=== PATIENT | male | born 1985 | race Caucasian/White ===

== ENCOUNTER 2021-06-06 13:47 | Emergency (ER) | payer OTHER, SELFPAY ==
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
--- NOTE | 2021-06-06 13:50 | ED.LOWEXIN ---
HPI - Extremity Injury (Lower) General Chief Complaint: Extremity Injury, Lower Stated Complaint: Rt Ankle Pain Time Seen by Provider: 06/06/21 13:51 Source: patient Mode of arrival: ambulatory Limitations: no limitations History of Present Illness HPI Narrative: Mr. Hanson is a 35-year-old male patient presenting to the clinic today with complaints of right ankle pain. He reports Related Data Home Medications Medication Instructions Recorded Confirmed roberto cider carynegar 500 mg tablet 500 mg PO DAILY tablet 01/21/20 06/06/21 sjbuvttj-ovzcjcee-siqfs acid 400 1 tablet PO DAILY tablet 01/21/20 06/06/21 mcg-vit K 20 mcg-lycop 300 mcg tablet turmeric root extract 500 mg 500 mg PO DAILY 01/21/20 06/06/21 capsule Allergies Allergy/AdvReac Type Severity Reaction Status Date / Time Sulfa (Sulfonamide Allergy Unknown Unknown Verified 06/06/21 14:15 Antibiotics) Review of Systems Review of Systems: Pertinent positives per HPI. Patient denies any fever, chills, rash, headache, visual changes, dizziness, cough, runny nose, sore throat, shortness of breath, chest pain, palpitations, nausea, vomiting, diarrhea, constipation, abdominal pain, or any urinary issues. PMFSH Surgical History Surgical History History of appendectomy History of elbow surgery right Family History Family History Father Hypertension Grandparent A-fib Grandparent Cancer of unknown origin Social History Social History Smoking status: Former smoker Smoking end date: 02/28/16 Alcohol intake: current Comments At the time of my signature, I reviewed and agree with the nursing past medical, surgical, social, and family history. There is no relevant family history pertinent to the patient complaint. Exam Narrative: General: Well-developed, well nourished, in no apparent distress Head: Normocephalic, atraumatic. Cardio: Regular rate and rhythm, s1 and s2 normal, no murmur appreciated. Resp: Clear to auscultation bilaterally, no rhonchi, rales, wheezing or rubs. Musculoskeletal: No deformity, non-tender to palpation, grossly normal range of motion, muscle strength strong and equal, peripheral pulse strong, no edema, no cyanosis, normal gait and station Course Course Emergency Course: Portions of this record may have been created with voice recognition software. Level of Care: Express Care Visit Vital Signs Vital signs: Vital Signs Temperature 37.2 C 06/06/21 13:55 Pulse Rate 86 06/06/21 13:55 Respiratory Rate 18 06/06/21 13:55 Blood Pressure 113/72 06/06/21 13:55 Pulse Oximetry 99 06/06/21 13:55 Temperature 37.2 C 06/06/21 13:55 Pulse Rate 86 06/06/21 13:55 Respiratory Rate 18 06/06/21 13:55 Blood Pressure 113/72 06/06/21 13:55 Pulse Oximetry 99 06/06/21 13:55 Vital signs reviewed MDM - Extremity Injury (Lower) Imaging Data Attestation: I personally reviewed and interpreted this imaging study as follows: My impression: Possible fracture of the right lateral subtalar/calcaneous. Radiologist's impression: Express [address] [phone] XRay ReportSigned with Addenda Patient: Alfredo Hanson LDOB: 1985MR#: [id number]/Sex: 35 / MAcct:[id number]: EXPTROY ADM Date: 06/06/21Attending Dr: Ordering Physician: Arcenio Cadet APRN Date of Service: 06/06/21 Procedure(s): XR ankle RT min 3V Accession Number(s): [id number] cc: Arcenio Cadet APRN; Dave Goff DO~ ADDENDUMReceived phone call from Arcenio Cadet APRN stating that the pain is more lateral and was questioning the line in region of the subtalar joint on the frontal projection. Line in question has been indicated on the exam as possible
[2021-06-06 13:55] VITALS: BP 113/72; PULSE 86; RESP 18; TEMP 37.2; O2SAT 99
== END 2021-06-06 14:55 | disposition home or self-care (01) ==
PROVIDERS: Emergency Provider Nurse Practitioner Family; PCP Internal Medicine
DX: S92.901A Unspecified fracture of right foot, initial encounter for closed fracture (principal); X58.XXXA Exposure to other specified factors, initial encounter
CPT/HCPCS: 29515; 73610; 99214; G0463

== ENCOUNTER 2022-10-12 09:35 | Outpatient (CLI) | payer OTHER, SELFPAY ==
[2022-10-12 19:27] LABS: Basophils Percent Auto 0.7 % (0.2-1.2); Eosinophils Absolute Auto 0.1 K/mm3 (0-0.3); Eosinophils Percent Auto 1.8 % (0-4.4); Hematocrit 42.1 % (42.0-52.0); Hemoglobin 13.6 g/dL (14.0-18.0); Immature Granulocyte Absolute 0.02 K/mm3 (0.00-0.031); Immature Granulocyte Percent A 0.4 % (0-0.5); Lymphocytes Absolute Auto 1.47 K/mm3 (0.9-3.2); Lymphocytes Percent Auto 32.2 % (18.3-44.2); Mean Corpuscular HGB Conc 32.3 g/dl (32-36); Mean Corpuscular Hemoglobin 28.8 pg (26-34); Mean Corpuscular Volume 89.2 fl (80-100); Monocytes Absolute Auto 0.5 K/mm3 (0.1-0.6); Monocytes Percent Auto 10.1 % (2.6-8.5); Neutrophils Absolute Auto 2.5 K/mm3 (1.3-6.7); Neutrophils Percent Auto 54.8 % (45.5-73.1); Platelet Count Result 128 k/mm3 (150-375); Red Blood Count 4.72 M/mm3 (4.6-6.20); Red Cell Distribution Width 12.8 % (11.5-14.5); White Blood Count 4.6 K/mm3 (4.5-10.0)
[2022-10-12 20:44] LABS: Alanine Aminotransferase 30 U/L (6-50); Albumin Level 4.6 g/dL (3.5-5.1); Alkaline Phosphatase 64 U/L (38-126); Anion Gap 6 mmol/L (8-16); Aspartate Amino Transferase 51 U/L (17-59); Bilirubin,Total 0.9 mg/dL (0.2-1.3); Blood Urea Nitrogen 20 mg/dL (9-20); Calcium 9.2 mg/dL (8.4-10.2); Carbon Dioxide 33 mmol/L (22-30); Chloride 100 mmol/L (98-107); Cholesterol 203 mg/dL (0-200); Estimated Glomerular Filt Rate > 60; Glucose 87 mg/dL (65-110); HDL Direct 60 mg/dL; Potassium 4.2 mmol/L (3.4-5.0); Sodium 139 mmol/L (137-145); Triglycerides 76 mg/dL (<150)
[2022-10-12 20:55] LABS: LDL Cholesterol Direct 107 mg/dL
== END 2022-10-12 09:36 | disposition home or self-care (01) ==
PROVIDERS: PCP Internal Medicine; Visit Provider Nurse Practitioner
DX: Z13.228 Encounter for screening for other metabolic disorders (principal); Z13.220 Encounter for screening for lipoid disorders
CPT/HCPCS: 36415; 80053; 80061; 85025

== ENCOUNTER 2022-10-21 13:15 | Outpatient (CLI) | payer OTHER, SELFPAY ==
[2022-10-21 17:05] LABS: Basophils Percent Auto 0.6 % (0.2-1.2); Eosinophils Absolute Auto 0.1 K/mm3 (0-0.3); Eosinophils Percent Auto 1.1 % (0-4.4); Hematocrit 44.1 % (42.0-52.0); Hemoglobin 14.3 g/dL (14.0-18.0); Immature Granulocyte Absolute 0.02 K/mm3 (0.00-0.031); Immature Granulocyte Percent A 0.3 % (0-0.5); Lymphocytes Absolute Auto 1.66 K/mm3 (0.9-3.2); Lymphocytes Percent Auto 26.2 % (18.3-44.2); Mean Corpuscular HGB Conc 32.4 g/dl (32-36); Mean Corpuscular Hemoglobin 28.4 pg (26-34); Mean Corpuscular Volume 87.5 fl (80-100); Mean Platelet Volume 10.7 fl (7.4-10.4); Monocytes Absolute Auto 0.5 K/mm3 (0.1-0.6); Monocytes Percent Auto 7.6 % (2.6-8.5); Neutrophils Absolute Auto 4.1 K/mm3 (1.3-6.7); Neutrophils Percent Auto 64.2 % (45.5-73.1); Platelet Count Result 163 k/mm3 (150-375); Red Blood Count 5.04 M/mm3 (4.6-6.20); Red Cell Distribution Width 12.8 % (11.5-14.5); White Blood Count 6.3 K/mm3 (4.5-10.0)
[2022-10-21 17:54] LABS: HIV 1/2 Ab P24 Ag Result Negative (Negative)
[2022-10-21 18:13] LABS: Hepatitis C Virus Antibody Negative (Negative)
== END 2022-10-21 13:16 | disposition home or self-care (01) ==
LOC: ANHGOSHLAB 13:17
PROVIDERS: PCP Internal Medicine; Visit Provider Clinical Nurse Specialist
DX: D69.6 Thrombocytopenia, unspecified (principal)
CPT/HCPCS: 36415; 85025; 86703; 86803; G0432

== ENCOUNTER 2023-01-21 21:40 | Emergency (ER) | payer OTHER, SELFPAY ==
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
[2023-01-21 21:44] VITALS: BP 127/75; PULSE 75; RESP 19; TEMP 36.5; O2SAT 98
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
== END 2023-01-22 03:00 | disposition home or self-care (01) ==
LOC: ANHED 01-22 02:31
PROVIDERS: Emergency Provider Physician Assistant; PCP Internal Medicine
DX: S46.912A Strain of unspecified muscle, fascia and tendon at shoulder and upper arm level, left arm, initial encounter (principal); Z87.891 Personal history of nicotine dependence; V86.56XA Driver of dirt bike or motor/cross bike injured in nontraffic accident, initial encounter
CPT/HCPCS: 73030; 99283; A4565

== ENCOUNTER 2024-02-01 08:22 | Outpatient (CLI) | payer OTHER, SELFPAY ==
[2024-02-01 12:40] LABS: Basophils Percent Auto 0.6 % (0.2-1.2); Eosinophils Absolute Auto 0.1 K/mm3 (0-0.3); Eosinophils Percent Auto 0.8 % (0-4.4); Hematocrit 41.3 % (42.0-52.0); Hemoglobin 13.3 g/dL (14.0-18.0); Immature Granulocyte Absolute 0.02 K/mm3 (0.00-0.031); Immature Granulocyte Percent A 0.3 % (0-0.5); Lymphocytes Absolute Auto 1.38 K/mm3 (0.9-3.2); Lymphocytes Percent Auto 21.1 % (18.3-44.2); Mean Corpuscular HGB Conc 32.2 g/dl (32-36); Mean Corpuscular Hemoglobin 28.7 pg (26-34); Mean Corpuscular Volume 89.2 fl (80-100); Monocytes Absolute Auto 0.5 K/mm3 (0.1-0.6); Monocytes Percent Auto 7.2 % (2.6-8.5); Neutrophils Absolute Auto 4.6 K/mm3 (1.3-6.7); Platelet Count Result 146 k/mm3 (150-375); Red Blood Count 4.63 M/mm3 (4.6-6.20); Red Cell Distribution Width 12.9 % (11.5-14.5); White Blood Count 6.5 K/mm3 (4.5-10.0)
[2024-02-01 12:56] LABS: Alanine Aminotransferase 33 U/L (6-50); Albumin Level 4.5 g/dL (3.5-5.1); Alkaline Phosphatase 69 U/L (38-126); Anion Gap 4 mmol/L (4-12); Aspartate Amino Transferase 80 U/L (17-59); Bilirubin,Total 1.1 mg/dL (0.2-1.3); Blood Urea Nitrogen 21 mg/dL (9-20); Calcium 9.1 mg/dL (8.4-10.2); Carbon Dioxide 33 mmol/L (22-30); Chloride 101 mmol/L (98-107); Cholesterol 158 mg/dL (0-200); Estimated Glomerular Filt Rate > 60; Glucose 87 mg/dL (65-110); HDL Direct 51 mg/dL; Potassium 4.2 mmol/L (3.4-5.0); Sodium 138 mmol/L (137-145); Triglycerides 106 mg/dL (<150)
[2024-02-01 13:08] LABS: LDL Cholesterol Direct 69 mg/dL
== END 2024-02-01 08:23 | disposition home or self-care (01) ==
LOC: ANHGOSHLAB 08:24
PROVIDERS: PCP Internal Medicine; Visit Provider Nurse Practitioner
DX: Z13.220 Encounter for screening for lipoid disorders (principal); Z13.29 Encounter for screening for other suspected endocrine disorder
CPT/HCPCS: 36415; 80053; 80061; 85025

== ENCOUNTER 2024-05-23 14:14 | Outpatient (CLI) | payer OTHER, SELFPAY ==
--- NOTE | ~2024-05-23 | XR_ITS ---
[XR_[id number]_CR ] INDICATION: TECHNIQUE: Frontal projection of the upper ribs, frontal projection of the lower ribs, oblique projec tion of all the ribs, frontal inspiratory chest x-ray for interpretation. FINDINGS: There are no displaced rib fractures identified. There are no soft tissue abnormality see n. The lungs are clear. IMPRESSION: 1:No acute displaced rib fractures. Reviewed, dictated and finalized at location A.
== END 2024-05-23 14:15 | disposition home or self-care (01) ==
PROVIDERS: PCP Nurse Practitioner; Visit Provider Nurse Practitioner
DX: R07.81 Pleurodynia (principal)
CPT/HCPCS: 71111

== ENCOUNTER 2025-02-13 15:33 | Outpatient (CLI) | payer OTHER, SELFPAY ==
--- OUTSIDE RECORDS SUMMARY | 2025-02-13 15:00 | XMS_ITS | Encounter Summary ---
Author Organization [facility] Address [address] [place] [address] Care Team Providers Care Street Light Inspector Name Role Phone Unavailable Primary Care Provider Unavailabl e Reason for Referral * Radiology Services (Routine) - Open Specialty Diagnoses / Procedures Referred By Ahsan t Referred To Contact Diagnoses Other secondary thrombocytopenia Procedures US ABDOMEN COMPLETE Josh Tello MD [address] [place] [phone] Phone: tel: fax: [place] [phone] Referral ID Status Reason Start Date Expiration Date V isits Requested Visits Authorized [id number] Open STL CTS 02/13/2025 03/16/2026 1 1 GENCY COMMUNICATIONS OFFICER Encounter Details Date Type Department Care Team (Late st Contact Info) Description 02/13/2025 3:00 PM EMERGENCY COMMUNICATIONS OFFICER Office Visit [facility] Oncology and Hematology [place] [address] [address] [facility] [address] [place] [address] Josh Tello MD [address] [place] [address] Chronic anemia (Primary Dx); Other secondary thrombocytopenia Social History Tobacco Use Types Packs/Day Years Used Date Smoking Tobacco: Former Cigarettes 0.3 11 0 02/27/2014 - 02/27/1994 Smokeless Tobacco: Never Tobacco Cessation:Counseling Given: Not Answered Alcohol Use Standard Drinks/Week Comments Never 0 (1 standard drink = 0.6 oz pur e alcohol) Sex and Gender Information Value Date Recorded Sex Assigned at Not on file Legal Sex Male 2:58 PM EMERGENCY COMMUNICATIONS OFFICER Gender Identity Not on file Sexual Orientation Not on file documented as of this encounter Last Filed Vital Signs Vital Sign Reading Time Taken Comments Blood Pressure 123/79 02/13/2025 2:54 PM EMERGENCY COMMUNICATIONS OFFICER Pulse 51 02/13/2025 2:54 PM EMERGENCY COMMUNICATIONS OFFICER Temperature 36.4 C (97.6 F) 02/13/2025 2:54 PM EMERGENCY COMMUNICATIONS OFFICER Respiratory Rate 12 02/13/2025 2:54 PM EMERGENCY COMMUNICATIONS OFFICER Oxygen Saturation 97% 02/13/2025 2:54 PM EMERGENCY COMMUNICATIONS OFFICER Inhaled Oxygen Concentration - - Weight 83.6 kg (184 lb 6.4 oz) 02/13/2025 2:54 P M EMERGENCY COMMUNICATIONS OFFICER Height 188 cm (6' 2) 02/13/2025 2:54 PM EMERGENCY COMMUNICATIONS OFFICER Body Mass Index 23.68 02/13/2025 2:54 PM EMERGENCY COMMUNICATIONS OFFICER documented in this encounter Plan of Treatment Upcoming Encounters Date Type Department Care Team (Late st Contact Info) Description 03/20/2025 4:30 PM EMERGENCY COMMUNICATIONS OFFICER Telephone Check Up [facility] Oncology and Hematology - [place] [address] [facility] [address] [address] Josh Tello MD [address] [facility] [address] [place] [address] Scheduled Orders Name Type Priority Associated Diagnoses Orde r Schedule CBC WITH DIFFERENTIAL Lab Stat Chronic anemia Expected: 02/13/2025, Expires: 02/13/2026 COMPREHENSIVE METABOLIC PANEL Lab Stat Chronic anemia Expected: 02/13/2025, Expires: 02/13/2026 FERRITIN Lab Routine Chronic anemia Expected: 02/13/2025, Expires: 02/13/2026 IRON, TIBC, AND PERCENT SATURATION Lab Routine Chronic anemia Expected: 02/13/2025, Expires: 02/13/2026 VITAMIN B12 AND FOLATE Lab Routine Chronic anemia Expected: 02/13/2025, Expires: 02/13/2026 METHYLMALONIC ACID Lab Routine Chronic anemia Expected: 02/13/2025, Expires: 02/13/2026 TRANSFERRIN RECEPTOR TFR SOLUBLE Lab Routine Chronic anemia Expected: 02/13/2025, Expires: 02/13/2026 US ABDOMEN COMPLETE Imaging Routine Other secondary thrombocytopenia 1 Occurrences starting 02/13/2025 until 02/13/2026 MISCELLANEOUS LAB TEST Lab Routine Other secondary thrombocytopenia Expected: 02/13/2025, Expires: 02/13/2026 documented as of this encounter Visit Diagnoses Diagnosis Chronic anemia- Primary Anemia, unspecified Other secondary thrombocytopenia documented in this encounter
[2025-02-13 15:51] LABS: Hematocrit 38.6 % (42.0-52.0); Hemoglobin 12.8 g/dL (14.0-18.0); Immature Granulocyte Percent A 0.2 % (0-0.5); Immature Platelet Fraction Pct 6.3 % (0.9-11.2); Lymphocytes Absolute Auto 1.76 K/mm3 (0.9-3.2); Mean Corpuscular HGB Conc 33.2 g/dl (32-36); Mean Corpuscular Hemoglobin 28.3 pg (26-34); Mean Corpuscular Volume 85.4 fl (80-100); Nucleated Red Blood Cells Absolute Auto 0.000 K/mm3 (0.0-0.012); Nucleated Red Blood Cells Perc 0.0 % (0.0-0.2); Platelet Count Result 142 k/mm3 (150-375); Red Blood Count 4.52 M/mm3 (4.6-6.20); White Blood Count 5.3 K/mm3 (4.5-10.0)
--- OUTSIDE RECORDS SUMMARY | 2025-02-13 16:06 | XMS_ITS | Patient Health Record ---
Author Organization [facility] Address [address] [place], [place] [id number] Care Team Providers Care Binder Lockstitch Name Role Phone KAMRAN GA Unavailable [phone] Dave Goff Unavailable Unavailable Allergies Allergen (clinical drug ingredient) Drug/Non Drug Allergy documented on EMR Reaction Allergy Type Onset Date Status Substance with sulfonamide structure and antibacterial mechanism of action (substance) Product containing sulfonamide (product) (uncoded) Unknown Allergy 10/08/2021 active Reason For Referral No Information Social History Social History Additional Details Category Social Info Options Details Migrated Social History Migrated Social History Alcohol intake : , History of tobacco use : , Smoking Status : Never used tobacco Plan Of Treatment No Information Insurance Providers Payer Name Payer Address Payer Phone Subscriber Number Group Number Insured Name Patient Relationship to Insured Coverage Start Date Coverage End Date [facility] [address] [address] [place] [address] [id number] ZHAO FENTON Self - patient is the insured
--- OUTSIDE RECORDS SUMMARY | 2025-02-13 16:06 | XMS_ITS | Encounter Summary ---
Author Organization [facility] Address [address] [facility] [place] [address] Care Team Providers Care Counter Manager Name Role Phone Dave Goff DO Primary Care Provider [phone] Reason for Visit * Reason Onset Date Comments Appointment 12/17/2024 FYI ALERT; PT SO UGHT SAME DAY /EARLIER APPT CHG FROM 1500 APPT TO SOONER TIME OF 1400- 25 TODAY FOR CONVENIENCE. Encounter Details Date Type Department Care Team (Late st Contact Info) Description 12/17/2024 Telephone [facility] - Dermatology [address] [place] [address], [facility] [place] [address] Drake Krishna MD [address] [place] [address] [place] [address] Appointment (FYI ALERT; PT SOUGHT SAME DAY /EARLIER APPT CHG FROM 1500 APPT TO SOONER TIME OF 1400- 25 TODAY FOR CONVENIENCE.) Social History Tobacco Use Types Packs/Day Years Used Date Smoking Tobacco: Former Cigarettes Smokeless Tobacco: Never Alcohol Use Standard Drinks/Week Comments Yes 0 (1 standard drink = 0.6 oz pur e alcohol) ocassionally Sex and Gender Information Value Date Recorded Sex Assigned at Not on file Legal Sex 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 documented in this encounter Plan of Treatment Upcoming Encounters Date Type Department Care Team (Late st Contact Info) Description 12/16/2025 1:00 PM CDT Office Visit [facility] - Dermatology [address] [place] [address], [place] [address] Drake Krishna MD [address] [place] [address] [address] [place] [address] documented as of this encounter Visit Diagnoses Not on filedocumented in this encounter Care Teams Counter Manager Relationship Specialty Start Date End Date Dave Goff DO PCP - General 06/29/15 documented as of this encounter
--- OUTSIDE RECORDS SUMMARY | 2025-02-13 16:06 | XMS_ITS | Clinical Summary ---
Author Organization [facility] Address [address] [facility] [place] [address] Care Team Providers Care Differential Repairer Name Role Phone Dave Goff DO Primary Care Provider [phone] Source Comments [facility],non-owned Affiliates and Associated Physician Practices is amultiple site organization consisting of ambulatory clinics and hospital sitesin [place], [place], [place] and [place]. This disclosure is being madepursuant to the Care Everywhere program and may not contain all information available regarding this patient. Last updated 17.[facility] Allergies Active Allergy Reactions Criticality Noted Date Comments Bee Venom Skin Reactions,Swelling Medium 11/08/2016 Sulfa Drugs Rash Medium 11/08/2016 Medications * Be aware that medications may not be up to date on this document. Alwaysverify current medications with the patient. No known medications Active Problems Problem Noted Date Diagnosed Date Actinic keratosis 12/17/2024 Neoplasm of uncertain behavior of skin 0 Other viral warts 11/08/2016 Melanocytic nevi of trunk 11/08/2016 Family history of melanoma 11/08/2016 Solar lentiginosis 11/08/2016 Multiple benign nevi of uppe r and lower extremities, and trunk 11/08/2016 Encounters Date Type Department Care Team Description 12/17/2024 2:00 PM CDT Office Visit [facility] - Dermatology [address] [place] [address] [place] [address] Drake Krishna MD Multiple benign nevi of upper and lower extremities, and trunk (Primary Dx); Family history of melanoma; Lentigines; Melanocytic nevi of other parts of face; Actinic keratosis 12/17/2024 Telephone [facility] - Dermatology [address] [place] [phone] Drake Krishna MD Appointment (FYI ALERT; PT SOUGHT SAME DAY /EARLIER APPT CHG FROM 1500 APPT TO SOONER TIME OF 1400- 10.21.25 TODAY FOR CONVENIENCE.) 12/17/2024 Travel from Last 3 Months Family History Medical History Relation Name Comments None Known Brother None Known Father None Known Maternal Aunt None Known Maternal Grandfather None Known Maternal Grandmother None Known Maternal Uncle Cancer - Skin, Melanoma Mother None Known Other None Known Paternal Aunt None Known Paternal Grandfather None Known Paternal Grandmother None Known Paternal Uncle None Known Sister Asthma Neg Hx CVA Neg Hx Cancer - Breast Neg Hx Cancer - Other Neg Hx Cancer - Skin, Non Melanoma Neg Hx Eczema Neg Hx Hemophilia Neg Hx Psoriasis Neg Hx Relation Name Status Comments Brother Father Maternal Aunt Maternal Grandfather Maternal Grandmother Maternal Uncle Mother Other Paternal Aunt Paternal Grandfather Paternal Grandmother Paternal Uncle Sister Social History Tobacco Use Types Packs/Day Years Used Date Smoking Tobacco: Former Cigarettes Smokeless Tobacco: Never Alcohol Use Standard Drinks/Week Comments Yes 0 (1 standard drink = 0.6 oz pur e alcohol) ocassionally Sex and Gender Information Value Date Recorded Sex Assigned at Not on file Legal Sex Male 5: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 Gender Identity Not on file Sexual Orientation Not on file Plan of Treatment Upcoming Encounters Date Type Department Care Team (Late st Contact Info) Description 12/16/2025 1:00 PM CDT Office Visit [facility] - Dermatology [address] [place] [phone] Drake Krishna MD [address] [place] [address] [place] [address] Health Maintenance Due Date Last Done Comments HIV SCREENING 2001 HEPATITIS C SCREENING 09/05/2004 DTAP/TDAP/TD VACCINES (1 - Tdap) 2005 HEPATITIS B VACCINE (1 of 3 - 19+ 3-dose series) 2005 HPV VACCINE (1 - 3-dose SCDM series) 2013 DEPRESSION SCREENING 02/28/2024 COVID-19 VACCINE (1 - 2024-2 6 season) 2024 INFLUENZA VACCINE (#1) 2024 ZOSTER VACCINE (1 of 2) 2036 HIB VACCINE Aged Out No longer eligi ble based on patient's age to complete this topic MENINGOCOCCAL (Group B) VACC INE SHARED DECISION-MAKING Aged Out No longer eligibl e based on patient's age to complete this topic MENINGOCOCCAL GROUPS A/C/Y/W VACCINE Aged Out No longer eligible b ased on patient's age to complete this topic PNEUMOCOCCAL VACCINE Aged Out No long er eligible based on patient's age to complete this topic Procedures Procedure Name Priority Date/Time Associated Diagnosis Comments OK DESTRUCTION PREMALIGNANT LESION 1ST Routine 12/17/2024 2:05 PM CDT Actinic keratosis from Last 3 Months Results * OK DESTRUCTION PREMALIGNANT LESION 1ST (12/17/2024 2:05 PM CDT) Narrative Drake Krishna MD - 12/17/2024 2:05 PM CDT Drake Krishna MD 12/17/2024 2:12 PM Diagnosis and treatment options discussed for AKs. Verbal consent obtained. Cryotherapy (Liquid Nitrogen) performed to 1 lesions for 6-7 seconds each. Number of cycles: 1. Wound care reviewed and post-cryotherapy handout given. Ryan Du MD Dermatology Resident, PGY-4 12/17/2024 2:05 PM Drake Krishna MD PROCEDURE/MINOR SURGICAL ORDERA BLES Final Result from Last 3 Months Insurance Care Teams Differential Repairer Relationship Specialty Start Date End Date Dave Goff DO PCP - General 06/29/15
--- OUTSIDE RECORDS SUMMARY | 2025-02-13 16:06 | XMS_ITS | Clinical Summary ---
Author Organization [facility] [employer] [employer] Address [address] [place] [address] Care Team Providers Care Clinical Exercise Specialist Name Role Phone Unavailable Primary Care Provider Unavailabl e Allergies Active Allergy Reactions Criticality Noted Date Comments Sulfa (Sulfonamide Antibiotics) Rash Medium 10/28 Medications No known medications Active Problems No known active problems Encounters Date Type Department Care Team Description 02/13/2025 3:00 PM APPLICATION DEVELOPMENT PROJECT MANAGER Office Visit [facility] Oncology and Hematology - Juan José [address] [place] [id number] Josh Tello MD Chronic anemia (Primary Dx); Other secondary thrombocytopenia from Last 3 Months Family History Medical History Relation Name Comments No Known Problems Child No Known Problems Father No Known Problems Mother No Known Problems Sister Relation Name Status Comments Child Alive Father Alive Mother Alive Sister Alive Social History Tobacco Use Types Packs/Day Years Used Date Smoking Tobacco: Former Cigarettes 0.3 11 0 02/27/2014 - 02/27/1994 Smokeless Tobacco: Never Tobacco Cessation:Counseling Given: Not Answered Alcohol Use Standard Drinks/Week Comments Never 0 (1 standard drink = 0.6 oz pur e alcohol) Sex and Gender Information Value Date Recorded Sex Assigned at Not on file Legal Sex Male 2:58 PM APPLICATION DEVELOPMENT PROJECT MANAGER Gender Identity Not on file Sexual Orientation Not on file Last Filed Vital Signs Vital Sign Reading Time Taken Comments Blood Pressure 123/79 02/13/2025 2:54 PM APPLICATION DEVELOPMENT PROJECT MANAGER Pulse 51 02/13/2025 2:54 PM APPLICATION DEVELOPMENT PROJECT MANAGER Temperature 36.4 C (97.6 F) 02/13/2025 2:54 PM APPLICATION DEVELOPMENT PROJECT MANAGER Respiratory Rate 12 02/13/2025 2:54 PM APPLICATION DEVELOPMENT PROJECT MANAGER Oxygen Saturation 97% 02/13/2025 2:54 PM APPLICATION DEVELOPMENT PROJECT MANAGER Inhaled Oxygen Concentration - - Weight 83.6 kg (184 lb 6.4 oz) 02/13/2025 2:54 P M APPLICATION DEVELOPMENT PROJECT MANAGER Height 188 cm (6' 2) 02/13/2025 2:54 PM APPLICATION DEVELOPMENT PROJECT MANAGER Body Mass Index 23.68 02/13/2025 2:54 PM APPLICATION DEVELOPMENT PROJECT MANAGER Plan of Treatment Upcoming Encounters Date Type Department Care Team (Late st Contact Info) Description 03/20/2025 4:30 PM APPLICATION DEVELOPMENT PROJECT MANAGER Telephone Check Up [facility] Oncology and Hematology - Juan José [address] [facility] [address] [place] [address] Josh Tello MD [address] [facility] [address] [place] [address] Health Maintenance Due Date Last Done Comments DTAP/TDAP/TD VACCINES (1 - Tdap) 2005 HEPATITIS B VACCINES (1 of 3 - 19+ 3-dose series) 08/27 Preventative Visit- Commercial 02/28/2024 INFLUENZA VACCINE (#1) 2024 HPV VACCINES (No Doses Required) Completed Insurance [facility] [id number]
[2025-02-13 16:38] LABS: Iron 146 ug/dL (49-181)
[2025-02-13 16:45] LABS: Alanine Aminotransferase 28 U/L (6-50); Albumin Level 4.7 g/dL (3.5-5.1); Alkaline Phosphatase 57 U/L (38-126); Anion Gap 5 mmol/L (4-12); Aspartate Amino Transferase 48 U/L (17-59); Bilirubin,Total 1.0 mg/dL (0.2-1.3); Blood Urea Nitrogen 13 mg/dL (9-20); Calcium 9.5 mg/dL (8.4-10.2); Carbon Dioxide 29 mmol/L (22-30); Chloride 104 mmol/L (98-107); Estimated Glomerular Filt Rate > 60; Glucose 81 mg/dL (65-110); Potassium 4.5 mmol/L (3.4-5.0); Sodium 138 mmol/L (137-145); Total Protein 7.3 g/dL (6.3-8.2)
[2025-02-13 16:48] LABS: Percent Iron Saturation 47 % (20-50)
[2025-02-13 17:20] LABS: Ferritin 70.90 ng/mL (17.9-464)
[2025-02-13 17:50] LABS: Vitamin B12 716.0 pg/mL (239-931)
== END 2025-02-13 15:34 | disposition home or self-care (01) ==
LOC: ANHLAB 15:33
PROVIDERS: PCP Nurse Practitioner; Visit Provider Internal Medicine Hematology & Oncology
DX: D64.9 Anemia, unspecified (principal); D69.59 Other secondary thrombocytopenia
CPT/HCPCS: 36415; 80053; 82607; 82728; 82746; 83540; 83550; 84238; 85025; 85055; 86022